=== PATIENT | male | born 2005 | race Caucasian/White ===

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

== ENCOUNTER 2023-01-11 19:55 | Emergency (ER) | payer MEDICAID, SELFPAY ==
[2023-01-11 20:24] VITALS: BP 126/74; PULSE 109; RESP 14; TEMP 36.7; O2SAT 97; BMI 32.5
--- NOTE | 2023-01-11 20:32 | W.ED.ABDPA2 ---
HPI - Abdominal Pain General: Chief Complaint: Abdominal Pain Stated Complaint: abd pain Time Seen by Provider: 01/11/23 20:28 History of Present Illness: 17-year-old male patient comes in with abdominal discomfort with 2 episodes of emesis. Patient appears nontoxic. Patient reports has been unable to eat or drink anything all day. Vital signs are unremarkable. 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 Associated Symptoms: Reports nausea and vomiting Review of Systems GI: Reports: abdominal pain, nausea and vomiting PFSH ED PFSH: Medical History Left renal atrophy Surgical History History of placement of ear tubes Family History Mother Healthy adult Father Diabetes Social History Smoking and tobacco status: current every day smoker Alcohol intake: never Lives independently: No Household members: friend(s) Marital status: Life Partner Current occupational status: employed Physical Exam Const: COMMON NORMALS: alert HENMT: COMMON NORMALS: normocephalic HEAD & SCALP: normocephalic Neck/C-Spine: COMMON NORMALS: full ROM Cardio: COMMON NORMALS: regular rate RATE: regular rate GI: COMMON NORMALS: Soft to palpation AUSCULTATION: Yes normoactive bowel sounds PALPATION: Yes Soft to palpation and Yes Tenderness to palpation present (GI) (Midepigastric) Extremity: COMMON NORMALS: normal to inspection Neuro: SENSORIUM/ORIENTATION: Yes alert Skin: COMMON NORMALS: turgor normal GENERAL SKIN EXAM: turgor normal Course Vital Signs: Vital signs: Vital Signs Temperature 98.0 F 01/11/23 20:24 Pulse Rate 107 H 01/11/23 20:51 Respiratory Rate 26 H 01/11/23 20:51 Blood Pressure 127/86 01/11/23 20:51 Pulse Oximetry 97 01/11/23 20:51 Oxygen Delivery Me thod Room Air 01/11/23 20:24 MDM - Abdominal Pain Medical Decision Making 17-year-old male patient comes in today for complaints of abdominal pain with nausea and vomiting. On exam patient appears nontoxic. Abdomen soft nontender. Bowel sounds are present. Skin is warm and dry. Vital signs are normal except for some mild elevation in pulse at 109. Differential diagnosis includes but not limited to gastroenteritis, gastritis, gallbladder disease, pancreatitis, constipation, renal calculi. Laboratory values were unremarkable. Urinalysis was clean. CT of the abdomen pelvis was unchanged from prior exam. Reviewed exam with patient with recommendations for treatment and follow-up. Patient reported understanding agreed to plan. Lab Data 01/11/23 20:35 01/11/23 20:35 Labs/Radiology: Radiology Impressions Abdomen/Pelvis CT 01/11/23 20:38 IMPRESSION: 1. Findings suggesting mesenteric adenitis as described in the report. 2. Stable moderate atrophy of the left kidney. 3. 2 stones at the left ureterovesicular junction are stable, the larger measures 7.6 mm. Laboratory Results WBC 10.0 10^3/uL (4.5-13.0) 01/11/23 20:35 RBC 5.54 10^6/uL (4.1-5.3) H 01/11/23 20:35 Hgb 15.4 g/dL (11.7-16.6) 01/11/23 20:35 Hct 47.4 % (42.0-52.0) 01/11/23 20:35 MCV 85.6 fl (80-94) 01/11/23 20:35 MCH 27.8 pg (28.0-34.0) L 01/11/23 20:35 MCHC 32.5 g/dL (30.0-36.0) 01/11/23 20:35 RDW 13.5 % (12.1-15.1) 01/11/23 20:35 Plt Count 333 10^3/cmm (130-400) 01/11/23 20:35 MPV 9.6 fL (7.4-10.4) 01/11/23 20:35 Neut % (Auto) 74.9 % 01/11/23 20:35 Lymph % (Auto) 15.4 % 01/11/23 20:35 [place] % (Auto) 7.9 % 01/11/23 20:35 Eos % (Auto) 0.6 % 01/11/23 20:35 Baso % (Auto) 0.4 % 01/11/23 20:35 Neut # (Auto) 7.47 10^3/uL (1.8-8.0) 01/11/23 20:35 Lymph # (Auto) 1.5 10^3/uL (1.5-6.5) 01/11/23 20:35 [place] # (Auto) 0.8 10^3/uL (0.2-0.9) 01/11/23 20:35 Eos # (Auto) 0.1 10^3/uL (0.0-0.8) 01/11/23 20:35 Baso # (Auto) 0.0 10^3/uL (0.0-0.1) 01/11/23 20:35 Nucleated RBC % (auto) 0 % 01/11/23 20:35 Nucleated RBCs # 0.0 /100WBC 01/11/23 20:35 Sodium 138 mmol/L (136-145) 01/11/23 20:35 Potassium 3.8 mmol/L (3.5-5.1) 01/11/23 20:35 Chloride 103 mmol/L (98-107) 01/11/23 20:35 Carbon Dioxide 26 mmol/L (22-29) 01/11/23 20:35 Anion Gap 12.8 (5-19) 01/11/23 20:35 BUN 8 mg/dL (6-20) 01/11/23 20:35 Creatinine 0.9 mg/dL (0.7-1.2) 01/11/23 20:35 GFR Calculation 108.7 mL/min (90-130) 01/11/23 20:35 Glucose 129 mg/dL (65-115) H 01/11/23 20:35 Calculated Osmolality 286 mOsm/kg (285-295) 01/11/23 20:35 Calcium 9.3 mg/dL (8.5-10.5) 01/11/23 20:35 Total Bilirubin 0.2 mg/dL (0.15-1.2) 01/11/23 20:35 AST 21 U/L (0-40) 01/11/23 20:35 ALT 26 U/L (0-41) 01/11/23 20:35 Alkaline Phosphatase 135 U/L (40-130) H 01/11/23 20:35 Total Protein 7.5 g/dL (6.6-8.7) 01/11/23 20:35 Albumin 4.3 g/dL (3.5-5.2) 01/11/23 20:35 Globulin 3.2 g/dL (1.3-4.6) 01/11/23 20:35 Lipase 31 U/L (13-60) 01/11/23 20:35 Urine Color Light yellow (Yellow) 01/11/23 21:41 Urine Appearance Clear (CLEAR) 01/11/23 21:41 Urine pH 7 (5-7) 01/11/23 21:41 Ur Specific [place] 1.000 (1.005-1.030) L 01/11/23 21:41 Urine Protein Trace (Negative) 01/11/23 21:41 Urine Glucose (UA) Norm (Normal) 01/11/23 21:41 Urine Ketones Negative (Negative) 01/11/23 21:41 Urine Blood Neg (Negative) 01/11/23 21:41 Urine Nitrate Negative (Negative) 01/11/23 21:41 Urine Bilirubin Neg (Negative) 01/11/23 21:41 Urine Urobilinogen Neg mg/dL (Negative) 01/11/23 21:41 Ur Leukocyte Esterase Trace (Negative) H 01/11/23 21:41 Urine RBC None /hpf (0-2) 01/11/23 21:41 Urine WBC 0-4 /hpf (0-5) H 01/11/23 21:41 Ur Squamous Epith Cells None /hpf (0-5) 01/11/23 21:41 Amorphous Sediment Not Reportable 01/11/23 21:41 Urine Bacteria None /hpf (NONE) 01/11/23 21:41 Discharge Plan Discharge Patient Disposition: Home Clinical Impression: Gastritis Qualifiers: Gastritis type: unspecified gastritis Chronicity: acute Gastritis bleeding: presence of bleeding unspecified Qualified Code(s): K29.00 - Acute gastritis without bleeding Condition: Stable Prescriptions: New famotidine 20 mg tablet 20 mg PO BID Qty: 60 0RF Continued ondansetron 4 mg tablet,disintegrating 4 mg PO Q8H PRN (Reason: nausea and vomiting) Qty: 7 0RF No Action hydrocodone-acetaminophen 5-325 mg tablet 1 tab PO Q8H PRN (Reason: pain (scale score 7-10)) Qty: 7 0RF Medrol (Flavio) 4 mg tablets,dose pack See Rx Instructions .ROUTE .COMPLEX Qty: 21 0RF Rx Instructions: orally per package directions Benadryl 25 mg capsule 25 mg PO TID Qty: 10 0RF Discharge Orders: Discharge ED (Routine); Ordered 01/11/23 Ordered By: Ziggy Cerda Referrals: Honey Appiah FNP [Primary Care Provider] - Discharge Diet: Usual diet Discharge Activity: Increase activity as tolerated Patient Instructions: Gastroenteritis (ED) Activity Restrictions/Additional Instructions: Clear liquid diet until abdominal pain resolves. Use ondansetron as needed for nausea and vomiting. Use famotidine 1 tablet twice a day for the next 2 weeks to help with the irritation of the stomach lining. Do not use nicotine, drink alcohol, or consume carbonated beverages as this may aggravate your stomach. Follow-up with primary care for further instructions. Return to ED for new concerns. Stand Alone Forms: Work/School Release Coding Level of Care Code ED Elevator Examiner And Adjuster for Naren Cooper
--- NOTE | 2023-01-11 20:38 | CTR_ITS ---
PROCEDURE INFORMATION: Exam: CT Abdomen And Pelvis With Contrast Exam date and time: 01/11/2023 9:04 PM Age: 17 years old Clinical indication: Abdominal pain; Acute; Patient HX: R abd pain, n/v; Additional info: Right abd pain, n/v with blood TECHNIQUE: Imaging protocol: Computed tomography of the abdomen and pelvis with contrast. Sagittal and coronal reformatted images were created and reviewed. Radiation optimization: All CT scans at this facility use at least one of these dose optimization techniques: automated exposure control; mA and/or kV adjustment per patient size (includes targeted exams where dose is matched to clinical indication); or iterative reconstruction. Contrast material: OMNI 350; Contrast volume: 100 ml; Contrast route: INTRAVENOUS (IV); REPORTING DATA: Count of CT and Cardiac NM exams in prior 12 months: This patient has received [address] and 0 known cardiac nuclear medicine studies in the 12 months prior to the current study. COMPARISON: CT kidney stone [id number] 10/07/2022 6:16 PM RADIATION DOSE METRICS: Total DLP (mGy-cm): 1075.23 FINDINGS: Lungs: Visualized lungs are clear. Pleural spaces: No pleural effusion. Heart: Visualized portions of the heart are unremarkable. Liver: The liver is unremarkable. Gallbladder and bile ducts: The gallbladder is unremarkable. No biliary ductal dilatation. Pancreas: The pancreas is unremarkable. No pancreatic ductal dilatation. Spleen: The spleen is unremarkable. Adrenal glands: The right and left adrenal glands are unremarkable. Kidneys and ureters: The right kidney is unremarkable. Stable moderate atrophy of the left kidney. 2 stones at the left ureterovesicular junction are stable, the larger measures 7.6 mm. Stomach and bowel: No obstruction. No mucosal thickening. Appendix: The appendix is visualized and is unremarkable. No findings to suggest acute appendicitis. Intraperitoneal space: No free intraperitoneal air. No ascites. No loculated fluid collections to suggest an abscess. Vasculature: No evidence for aortic aneurysm or aortic dissection. Hepatic veins, portal veins, splenic vein, and SMV are patent. Lymph nodes: Multiple small, nonspecific lymph nodes in the mesenteric fat of the right lower quadrant. No pathologically enlarged lymph nodes. Otherwise, no evidence of bowel inflammation, inflammatory stranding, fluid collections or abscess formation. Findings are suggestive of mesenteric adenitis, which can be secondary to a variety of bacterial, viral, or other inflammatory processes. Urinary bladder: Unremarkable as visualized. Reproductive: Unremarkable as visualized. Bones/joints: No acute fracture. Soft tissues: No acute abnormality in the extra-abdominal soft tissues. CT/CT abdomen pelvis w con* [id number] IMPRESSION: 1. Findings suggesting mesenteric adenitis as described in the report. 2. Stable moderate atrophy of the left kidney. 3. 2 stones at the left ureterovesicular junction are stable, the larger measures 7.6 mm.
[2023-01-11 20:47] VITALS: RESP 16
[2023-01-11] MEDS: ketorolac 30 mg/mL INJ 15 MG IVP (20:47)
[2023-01-11] MEDS: ondansetron 2 mg/ML SDV 2 mL 4 MG IVP (20:47)
[2023-01-11] MEDS: fentaNYL 50 mcg/mL INJ 2mL 100 MCG IVP (20:47)
[2023-01-11] MEDS: sodium chloride 0.9% 1,000 ML 999 ML IV (20:48)
[2023-01-11 20:51] VITALS: BP 127/86; PULSE 107; RESP 26; O2SAT 97
[2023-01-11 21:00] LABS: Alanine Aminotransferase 26 U/L (0-41); Albumin Level 4.3 g/dL (3.5-5.2); Alkaline Phosphatase 135 U/L (40-130); Anion Gap 12.8 (5-19); Aspartate Amino Transferase 21 U/L (0-40); Blood Urea Nitrogen 8 mg/dL (6-20); Calcium 9.3 mg/dL (8.5-10.5); Carbon Dioxide 26 mmol/L (22-29); Chloride 103 mmol/L (98-107); Globulin 3.2 g/dL (1.3-4.6); Glomerular Filtration Rate 108.7 mL/min (90-130); Glucose 129 mg/dL (65-115); Lipase 31 U/L (13-60); Osmolality Calculated 286 mOsm/kg (285-295); Potassium 3.8 mmol/L (3.5-5.1); Sodium 138 mmol/L (136-145); Total Bilirubin 0.2 mg/dL (0.15-1.2); Total Protein 7.5 g/dL (6.6-8.7)
[2023-01-11] MEDS: iohexol 350 mg/mL 500 mL Btl (per mL) IV (21:07)
[2023-01-11 21:08] LABS: Basophils % 0.4 %; Eosinophils # 0.1 10^3/uL (0.0-0.8); Eosinophils % 0.6 %; Hematocrit 47.4 % (42.0-52.0); Hemoglobin 15.4 g/dL (11.7-16.6); Lymphocytes # 1.5 10^3/uL (1.5-6.5); Lymphocytes % 15.4 %; Mean Corpuscular HGB Conc 32.5 g/dL (30.0-36.0); Mean Corpuscular Hemoglobin 27.8 pg (28.0-34.0); Mean Corpuscular Volume 85.6 fl (80-94); Mean Platelet Volume 9.6 fL (7.4-10.4); Monocytes # 0.8 10^3/uL (0.2-0.9); Monocytes % 7.9 %; Neutrophils # 7.47 10^3/uL (1.8-8.0); Neutrophils % 74.9 %; Nucleated Red Blood Cells % 0 %; Platelet Count 333 10^3/cmm (130-400); Red Blood Count 5.54 10^6/uL (4.1-5.3); Red Cell Distribution Width 13.5 % (12.1-15.1)
[2023-01-11 21:56] LABS: Add Urine Microscopic? YES; Bilirubin Urine Neg (Negative); Blood Urine Neg (Negative); Glucose Urine UA Norm (Normal); Ketones Urine Negative (Negative); Leukocyte Esterase Urine Trace (Negative); Nitrate Urine Negative (Negative); Protein Urine Trace (Negative); Urine Appearance Clear (CLEAR); Urine Color Light yellow (Yellow); Urobilinogen Urine Neg (Negative); pH Urine 7 (5-7)
[2023-01-11 21:57] LABS: Add Urine Culture? No; WBC Urine 0-4 /hpf (0-5)
[2023-01-11 22:11] VITALS: BP 121/69; PULSE 95; RESP 23; O2SAT 97
== END 2023-01-11 22:12 | disposition home or self-care (01) ==
PROVIDERS: Emergency Medicine; Emergency Provider Nurse Practitioner Family; PCP Registered Nurse
DX: K29.00 Acute gastritis without bleeding (principal); F17.210 Nicotine dependence, cigarettes, uncomplicated
CPT/HCPCS: 36415; 74177; 80053; 81001; 83690; 85025; 96374; 96375; 99285; J1885; J2405; J3010; J7030; Q9967

== ENCOUNTER 2023-04-01 22:10 | Emergency (ER) | payer MEDICAID, SELFPAY ==
[2023-04-01 22:18] VITALS: BP 147/91; PULSE 82; RESP 20; TEMP 36.7; O2SAT 98; BMI 35.2
--- NOTE | 2023-04-01 22:24 | CTR_ITS ---
PROCEDURE INFORMATION: Exam: CT Abdomen And Pelvis With Contrast Exam date and time: 04/01/2023 11:21 PM Age: 17 years old Clinical indication: Abdominal pain; Localized; Prior surgery; Surgery date: 6+ months; Surgery type: PT thinks he had surgery to his RT kidney in the past but doesnt know what kind; Patient HX: Lower abd pain that radiates to the rlq TECHNIQUE: Imaging protocol: Computed tomography of the abdomen and pelvis with contrast. Radiation optimization: All CT scans at this facility use at least one of these dose optimization techniques: automated exposure control; mA and/or kV adjustment per patient size (includes targeted exams where dose is matched to clinical indication); or iterative reconstruction. Contrast material: OMNI 350; Contrast volume: 100 ml; Contrast route: INTRAVENOUS (IV); REPORTING DATA: Count of CT and Cardiac NM exams in prior 12 months: This patient has received 2 known CTs and 0 known cardiac nuclear medicine studies in the 12 months prior to the current study. COMPARISON: CT abdomen pelvis w con* [id number] 01/11/2023 9:04 PM RADIATION DOSE METRICS: Total DLP (mGy-cm): 1088.63 FINDINGS: Liver: Hepatic steatosis. Gallbladder and bile ducts: Normal. No calcified stones. No ductal dilation. Pancreas: Normal. No ductal dilation. Spleen: Normal. No splenomegaly. Adrenal glands: Normal. No mass. Kidneys and ureters: Left kidney chronic atrophy. Two apparent calculi again seen at the left ureterovesical junction, measuring 7.6 mm, negative for hydronephrosis or hydroureter. Stomach and bowel: Prominent fluid in the small bowel without dilation may reflect an enteritis. Appendix: No evidence of appendicitis. Intraperitoneal space: Unremarkable. No free air. No significant fluid collection. Vasculature: Unremarkable. No abdominal aortic aneurysm. Lymph nodes: Scattered prominent subcentimeter short axis largely right abdominal mesenteric lymph nodes, similar to prior exam, nonspecific. Urinary bladder: Unremarkable as visualized. Reproductive: Unremarkable as visualized. Bones/joints: Unremarkable. No acute fracture. Soft tissues: Unremarkable. CT/CT abdomen pelvis w con* [id number] IMPRESSION: 1. Prominent fluid in the small bowel without dilation may reflect an enteritis. 2. Scattered prominent subcentimeter short axis largely right abdominal mesenteric lymph nodes, similar to prior exam, nonspecific. 3. Hepatic steatosis. 4. Left kidney chronic atrophy. 5. Two apparent calculi again seen at the left ureterovesical junction, measuring 7.6 mm, negative for hydronephrosis or hydroureter.
--- NOTE | 2023-04-01 22:24 | W.ED.ABDPA2 ---
HPI - Abdominal Pain General: Chief Complaint: Abdominal Pain Stated Complaint: lower abd pain Time Seen by Provider: 04/01/23 22:12 Source: patient Mode of arrival: ambulatory Limitations: no limitations History of Present Illness: 17-year-old male states he been having abdominal pains been going on for roughly a month but got much worse for the last 2 days he states its around his bellybutton and right lower side states pain is worse with movement and lifting rates pain a 5 out of 10 currently denies any vomiting denies any fevers. Associated Symptoms: Reports nausea; Denies chills, diarrhea, dysuria, fever(s) and vomiting Review of Systems Const: Denies: fever(s), chills or body aches Eyes: Denies: blurry vision or eye discomfort ENMT: Denies: throat pain or dental pain Card: Denies: chest pain Resp: Denies: dyspnea GI: Reports: abdominal pain and nausea; Denies: vomiting or diarrhea : Denies: dysuria Musc: Denies: neck pain or back pain Skin/Breast: Denies: rash Neuro: Denies: headache(s) PFSH ED PFSH: Medical History Left renal atrophy Surgical History History of placement of ear tubes Family History Mother Healthy adult Father Diabetes Social History Smoking and tobacco/nicotine status: current every day tobacco/nicotine user Alcohol intake: never Lives independently: No Household members: friend(s) Marital status: Life Partner Current occupational status: employed Physical Exam Const: COMMON NORMALS: no acute distress, patient oriented x3 and healthy appearing HENMT: COMMON NORMALS: normocephalic and atraumatic HEAD & SCALP: normocephalic and atraumatic Eye: COMMON NORMALS: conjunctivae normal CONJUNCTIVA: Yes conjunctivae normal Neck/C-Spine: COMMON NORMALS: full ROM and supple Chest: COMMONS NORMALS: normal inspection of the chest Resp: COMMON NORMALS: normal respiratory effort, No retractions, No use of accessory muscles and clear to auscultation bilaterally AUSCULTATION: clear to auscultation bilaterally Cardio: COMMON NORMALS: regular rate, regular rhythm and No murmurs present (Cardio) RATE: regular rate RHYTHM: regular rhythm GI: COMMON NORMALS: Normal to inspection, nondistended, normoactive bowel sounds present, Soft to palpation, non-tender and no masses PALPATION: Yes Soft to palpation Extremity: COMMON NORMALS: normal to inspection and full ROM Neuro: COMMON NORMALS: patient oriented x3, moves all extremities and no focal motor deficits Psych: COMMON NORMALS: mental status grossly normal, Normal thought process present and cooperative THOUGHT PROCESS: Normal thought process present Skin: COMMON NORMALS: no rashes or lesions noted and no wounds GENERAL SKIN EXAM: no rashes or lesions noted Course Vital Signs: Vital signs: Vital Signs Temperature 98.1 F 04/01/23 22:18 Pulse Rate 76 04/01/23 23:53 Respiratory Rate 18 04/01/23 22:40 Blood Pressure 111/75 04/01/23 23:53 Pulse Oximetry 95 04/01/23 23:53 Oxygen Delivery Me thod Room Air 04/01/23 23:53 MDM - Abdominal Pain Medical Decision Making Patient presents here with abdominal pain CT shows an enteritis his pain is improved blood work is normal patient is stable for discharge he is to follow-up with PCP and return for understanding will place him on Protonix. Medical Records I reviewed the patient's medical records. Lab Data I reviewed the patient's lab results. 04/01/23 22:21 04/01/23 22:21 Labs/Radiology: Radiology Impressions Abdomen/Pelvis CT 04/01/23 22:24 IMPRESSION: 1. Prominent fluid in the small bowel without dilation may reflect an enteritis. 2. Scattered prominent subcentimeter short axis largely right abdominal mesenteric lymph nodes, similar to prior exam, nonspecific. 3. Hepatic steatosis. 4. Left kidney chronic atrophy. 5. Two apparent calculi again seen at the left ureterovesical junction, measuring 7.6 mm, negative for hydronephrosis or hydroureter. Laboratory Results WBC 9.99 10^3/uL (4.5-13.0) 04/01/23 22:21 RBC 5.51 10^6/uL (3.85-5.65) 04/01/23 22:21 Hgb 15.20 g/dL (13.2-15.6) 04/01/23 22:21 Hct 46.5 % (37-53) 04/01/23 22:21 MCV 84.4 fl (82-101) 04/01/23 22:21 MCH 27.6 pg (27-33) 04/01/23 22:21 MCHC 32.7 g/dL (30-55) 04/01/23 22:21 RDW 13.4 % (12.1-15.1) 04/01/23 22:21 Plt Count 338 10^3/cmm (157-399) 04/01/23 22:21 MPV 9.3 fL (7.4-10.4) 04/01/23 22:21 Neut % (Auto) 66.6 % 04/01/23 22:21 Lymph % (Auto) 25.9 % 04/01/23 22:21 [place] % (Auto) 6.3 % 04/01/23 22:21 Eos % (Auto) 0.4 % 04/01/23 22:21 Baso % (Auto) 0.2 % 04/01/23 22:21 Neut # (Auto) 6.65 10^3/uL (1.8-8.0) 04/01/23 22:21 Lymph # (Auto) 2.6 10^3/uL (1.5-6.5) 04/01/23 22:21 [place] # (Auto) 0.6 10^3/uL (0.2-0.9) 04/01/23 22:21 Eos # (Auto) 0.0 10^3/uL (0.0-0.8) 04/01/23 22:21 Baso # (Auto) 0.0 10^3/uL (0.0-0.1) 04/01/23 22:21 Nucleated RBC % (auto) 0 % 04/01/23 22:21 Nucleated RBCs # 0.0 /100WBC 04/01/23 22:21 Sodium 139 mmol/L (136-145) 04/01/23 22:21 Potassium 4.2 mmol/L (3.5-5.1) 04/01/23 22:21 Chloride 103 mmol/L (98-107) 04/01/23 22:21 Carbon Dioxide 24 mmol/L (22-29) 04/01/23 22:21 Anion Gap 16.2 (5-19) 04/01/23 22:21 BUN 13 mg/dL (6-20) 04/01/23 22:21 Creatinine 1.0 mg/dL (0.7-1.2) 04/01/23 22:21 GFR Calculation 96.3 mL/min (90-130) 04/01/23 22:21 Glucose 113 mg/dL (65-115) 04/01/23 22:21 Calculated Osmolality 289 mOsm/kg (285-295) 04/01/23 22:21 Calcium 9.7 mg/dL (8.5-10.5) 04/01/23 22:21 Total Bilirubin 0.2 mg/dL (0.15-1.2) 04/01/23 22:21 AST 23 U/L (0-40) 04/01/23 22:21 ALT 32 U/L (0-41) 04/01/23 22:21 Alkaline Phosphatase 121 U/L (40-130) 04/01/23 22:21 Total Protein 8.0 g/dL (6.6-8.7) 04/01/23 22:21 Albumin 4.9 g/dL (3.5-5.2) 04/01/23 22:21 Globulin 3.1 g/dL (1.3-4.6) 04/01/23 22:21 Lipase 31 U/L (13-60) 04/01/23 22:21 Urine Color Yellow (Yellow) 04/01/23 23:10 Urine Appearance Clear (CLEAR) 04/01/23 23:10 Urine pH 5 (5-7) 04/01/23 23:10 Ur Specific [place] 1.020 (1.005-1.030) 04/01/23 23:10 Urine Protein Neg (Negative) 04/01/23 23:10 Urine Glucose (UA) Norm (Normal) 04/01/23 23:10 Urine Ketones Negative (Negative) 04/01/23 23:10 Urine Blood Neg (Negative) 04/01/23 23:10 Urine Nitrate Negative (Negative) 04/01/23 23:10 Urine Bilirubin Neg (Negative) 04/01/23 23:10 Urine Urobilinogen Norm mg/dL (Negative) 04/01/23 23:10 Ur Leukocyte Esterase Negative (Negative) 04/01/23 23:10 All radiology interpretation(s) finalized by discharge Discharge Plan Discharge Patient Disposition: Home Clinical Impression: Abdominal pain Condition: Stable Prescriptions: New Protonix 40 mg tablet,delayed release (DR/EC) 40 mg PO DAILY Qty: 60 0RF No Action hydrocodone-acetaminophen 5-325 mg tablet 1 tab PO Q8H PRN (Reason: pain (scale score 7-10)) Qty: 7 0RF Medrol (Flavio) 4 mg tablets,dose pack See Rx Instructions .ROUTE .COMPLEX Qty: 21 0RF Rx Instructions: orally per package directions Benadryl 25 mg capsule 25 mg PO TID Qty: 10 0RF famotidine 20 mg tablet 20 mg PO BID Qty: 60 0RF ondansetron 4 mg tablet,disintegrating 4 mg PO Q8H PRN (Reason: nausea and vomiting) Qty: 7 0RF Discharge Orders: Discharge ED (Routine); Ordered 04/02/23 Ordered By: Kaz Farfan Referrals: Honey Appiah FNP [Primary Care Provider] - 1-3 days Discharge Diet: Advance as tolerated Discharge Activity: Resume usual activity Patient Instructions: Abdominal Pain (ED) Coding Level of Care Code ED Professor Of Chemical Engineering for Naren Cooper
[2023-04-01 22:28] LABS: Basophils % 0.2 %; Eosinophils % 0.4 %; Hematocrit 46.5 % (37-53); Lymphocytes # 2.6 10^3/uL (1.5-6.5); Lymphocytes % 25.9 %; Mean Corpuscular HGB Conc 32.7 g/dL (30-55); Mean Corpuscular Hemoglobin 27.6 pg (27-33); Mean Corpuscular Volume 84.4 fl (82-101); Mean Platelet Volume 9.3 fL (7.4-10.4); Monocytes # 0.6 10^3/uL (0.2-0.9); Monocytes % 6.3 %; Neutrophils # 6.65 10^3/uL (1.8-8.0); Neutrophils % 66.6 %; Nucleated Red Blood Cells % 0 %; Platelet Count 338 10^3/cmm (157-399); Red Blood Count 5.51 10^6/uL (3.85-5.65); Red Cell Distribution Width 13.4 % (12.1-15.1); White Blood Count 9.99 10^3/uL (4.5-13.0)
[2023-04-01] MEDS: ondansetron 2 mg/ML SDV 2 mL 4 MG IVP (22:34)
[2023-04-01 22:36] VITALS: RESP 16
[2023-04-01] MEDS: morphine 4 mg/mL SDV 1 mL IVP (22:36)
[2023-04-01 22:40] VITALS: BP 147/91; PULSE 77; RESP 18; O2SAT 97
[2023-04-01 22:57] LABS: Alanine Aminotransferase 32 U/L (0-41); Albumin Level 4.9 g/dL (3.5-5.2); Alkaline Phosphatase 121 U/L (40-130); Anion Gap 16.2 (5-19); Aspartate Amino Transferase 23 U/L (0-40); Blood Urea Nitrogen 13 mg/dL (6-20); Calcium 9.7 mg/dL (8.5-10.5); Carbon Dioxide 24 mmol/L (22-29); Chloride 103 mmol/L (98-107); Globulin 3.1 g/dL (1.3-4.6); Glomerular Filtration Rate 96.3 mL/min (90-130); Glucose 113 mg/dL (65-115); Lipase 31 U/L (13-60); Osmolality Calculated 289 mOsm/kg (285-295); Potassium 4.2 mmol/L (3.5-5.1); Sodium 139 mmol/L (136-145); Total Bilirubin 0.2 mg/dL (0.15-1.2)
[2023-04-01 23:15] LABS: Add Urine Microscopic? NO; Charge for UA Resulting for Rev
[2023-04-01 23:22] LABS: Bilirubin Urine Neg (Negative); Blood Urine Neg (Negative); Glucose Urine UA Norm (Normal); Ketones Urine Negative (Negative); Leukocyte Esterase Urine Negative (Negative); Nitrate Urine Negative (Negative); Protein Urine Neg (Negative); Urine Appearance Clear (CLEAR); Urine Color Yellow (Yellow); Urobilinogen Urine Norm (Negative); pH Urine 5 (5-7)
[2023-04-01] MEDS: iohexol 350 mg/mL 500 mL Btl (per mL) IV (23:25)
[2023-04-01 23:53] VITALS: BP 111/75; PULSE 76; O2SAT 95
--- NOTE | 2023-04-02 00:02 | PC.NURSE ---
Rounding with patient re: pain. Pt states pain is still 10/10. He does not feel that the Morphine helped at all and does not want any strong pain medication. Provider notified and Tylenol po order has been place.
[2023-04-02] MEDS: acetaminophen 500 mg Tablet 1000 MG PO (00:05)
[2023-04-02 00:29] VITALS: BP 133/69; PULSE 80; RESP 18; O2SAT 99
== END 2023-04-02 00:32 | disposition home or self-care (01) ==
PROVIDERS: Emergency Provider Emergency Medicine; PCP Registered Nurse
DX: R10.30 Lower abdominal pain, unspecified (principal); N20.1 Calculus of ureter; F17.210 Nicotine dependence, cigarettes, uncomplicated
CPT/HCPCS: 36415; 74177; 80053; 81003; 83690; 85025; 96374; 96375; 99285; J2270; J2405; Q9967

== ENCOUNTER 2023-06-11 18:01 | Emergency (ER) | payer MEDICAID, SELFPAY ==
[2023-06-11 18:05] VITALS: BP 120/80; PULSE 94; RESP 18; TEMP 36.6; O2SAT 98; BMI 35.8
--- NOTE | 2023-06-11 18:28 | CTR_ITS ---
PROCEDURE INFORMATION: Exam: CT Pelvis With Contrast Exam date and time: 06/11/2023 7:22 PM Age: 17 years old Clinical indication: Patient HX: Possible abscess to gluteal cleft. ; Additional info: Deep abscess TECHNIQUE: Imaging protocol: Computed tomography of the pelvis with contrast. Radiation optimization: All CT scans at this facility use at least one of these dose optimization techniques: automated exposure control; mA and/or kV adjustment per patient size (includes targeted exams where dose is matched to clinical indication); or iterative reconstruction. Contrast material: OMNI 350; Contrast volume: 100 ml; Contrast route: INTRAVENOUS (IV); REPORTING DATA: Count of CT and Cardiac NM exams in prior 12 months: This patient has received 3 known CTs and 0 known cardiac nuclear medicine studies in the 12 months prior to the current study. COMPARISON: CT abdomen pelvis w con* [id number] 04/01/2023 11:21 PM RADIATION DOSE METRICS: Total DLP (mGy-cm): 864.61 FINDINGS: Kidneys and ureters: Calcifications adjacent to the left ureterovesical junction are unchanged from prior. Stomach and bowel: Visualized small bowel and colon are unremarkable. Appendix: No evidence of appendicitis. Intraperitoneal space: Unremarkable. No free air. No significant fluid collection. Lymph nodes: Unremarkable. No enlarged lymph nodes. Urinary bladder: Normal. No mass. Reproductive: Normal as visualized. Bones/joints: Unremarkable. No acute fracture. No dislocation. Soft tissues: In the midline superior aspect of the gluteal cleft, there is focal edema and cutaneous thickening surrounding a 1.4 x 0.9 x 1.0 cm low-attenuation focus which may be a developing abscess. The overall area of inflammation measures 2.3 x 4.3 x 3.4 cm. No radiopaque foreign body or soft tissue gas. No perineal/perianal abscess or inflammation. CT/CT pelvis w con* [id number] IMPRESSION: In the midline superior gluteal cleft there is focal inflammation with a small central low attenuation collection worrisome for an abscess. No foreign body or soft tissue gas. No inflammation in the perianal tissues.
--- NOTE | 2023-06-11 18:28 | W.ED.GENADLT ---
HPI - General Adult General: Chief complaint: General Medical Stated complaint: Hyper Vent\Cyst On Bottom Time Seen by Provider: 06/11/23 18:07 History of Present Illness: 17-year-old male presented emergency room with pain along the gluteal cleft for the past 2 weeks. Patient reveals increased pain today and was seen at a different hospital few hours ago. X-ray was done and patient was told he had a cyst but no medication was given. Patient reveals increased pain upon getting home and described pain as sharp sensation with severity of 8 out of 10. Increased pain with ambulation but denies any bowel or bladder dysfunction. No fever, chills, dysuria, hematuria or urine frequency. Girlfriend noticed some redness but denies any drainage from the area. Associated symptoms: Deny confusion, malaise, nausea or vomiting Review of Systems General: Reports: 10 or more systems reviewed and unremarkable except in HPI and below Const: Denies: fever(s), chills, body aches, change in appetite, change in weight, fatigue, malaise or night sweats GI: Denies: abdominal pain, nausea, vomiting, hematemesis, coffee ground emesis or dysphagia : Denies: flank pain, difficulty urinating, dysuria, urinary frequency, urinary urgency, urinary hesitancy, urinary dribbling, difficulty starting urination, change in urine stream, nocturia, oliguria, testicular pain, testicular mass, difficulty with ejactulations or painful ejaculations Skin/Breast: Reports: erythema, skin tenderness and skin swelling Neuro: Denies: numbness in extremities, weakness in extremities, sensory changes, lack of coordination, difficulty walking, frequent falls, dizziness, vertigo or confusion [facility] ED PFSH: Medical History Left renal atrophy Surgical History History of placement of ear tubes Family History Mother Healthy adult Father Diabetes Social History Smoking and tobacco/nicotine status: current every day tobacco/nicotine user Alcohol intake: never Lives independently: No Household members: friend(s) Marital status: Life Partner Current occupational status: employed Physical Exam Const: COMMON NORMALS: no acute distress, average body habitus, patient oriented x3, no limitations, healthy appearing, alert and well nourished Chest: COMMONS NORMALS: normal inspection of the chest, normal palpation of entire chest wall, normal inspection of the breasts and normal palpation of the breasts Breast/axilla inspection: Yes normal inspection of the breasts BREAST/AXILLA PALPATION: Yes normal palpation of the breasts Resp: COMMON NORMALS: normal respiratory effort, No retractions, No use of accessory muscles, clear to auscultation bilaterally and percussion normal AUSCULTATION: clear to auscultation bilaterally PERCUSSION: percussion normal Back/Pelvis: SACRUM: erythema, swelling and tenderness Neuro: COMMON NORMALS: patient oriented x3 SENSORIUM/ORIENTATION: Yes alert Procedures Abscess I/D Site: other (Gluteal cleft) Local Anesthetic: lidocaine 2% Amount of anesthesia used (mL): 5 Technique: incised with #11 blade Amount of fluid expressed (mL): 2 Irrigation: No Packing used?: plain Complications: pain and bleeding Course Vital Signs: Vital signs: Vital Signs Temperature 97.9 F 06/11/23 18:05 Pulse Rate 90 06/11/23 20:38 Respiratory Rate 16 06/11/23 20:38 Blood Pressure 126/72 06/11/23 20:38 Pulse Oximetry 98 06/11/23 20:38 Oxygen Delivery Me thod Room Air 06/11/23 18:05 MDM - General Adult Medical Decision Making Patient made comfortable emergency room and had extensive workup with CBC, CMP, CT scan. Incision and drainage was performed and it was packed with iodoform. Patient was given IV antibiotics in the ER. Patient be discharged home with oral antibiotics and close follow-up PCP recommend for wound recheck. Differential Diagnosis Abscess, folliculitis, cellulitis, perirectal abscess pilonidal abscess Lab Data 06/11/23 19:11 06/11/23 19:[address] 06/11/23 18:28 IMPRESSION: In the midline superior gluteal cleft there is focal inflammation with a small central low attenuation collection worrisome for an abscess. No foreign body or soft tissue gas. No inflammation in the perianal tissues. Laboratory Results WBC 11.92 10^3/uL (4.5-13.0) 06/11/23 19:11 RBC 5.41 10^6/uL (3.85-5.65) 06/11/23 19:11 Hgb 14.90 g/dL (13.2-15.6) 06/11/23 19:11 Hct 45.6 % (37-53) 06/11/23 19:11 MCV 84.3 fl (82-101) 06/11/23 19:11 MCH 27.5 pg (27-33) 06/11/23 19:11 MCHC 32.7 g/dL (30-55) 06/11/23 19:11 RDW 13.5 % (12.1-15.1) 06/11/23 19:11 Plt Count 315 10^3/cmm (157-399) 06/11/23 19:11 MPV 9.5 fL (7.4-10.4) 06/11/23 19:11 Neut % (Auto) 79.0 % 06/11/23 19:11 Lymph % (Auto) 15.5 % 06/11/23 19:11 [place] % (Auto) 4.4 % 06/11/23 19:11 Eos % (Auto) 0.3 % 06/11/23 19:11 Baso % (Auto) 0.2 % 06/11/23 19:11 Neut # (Auto) 9.41 10^3/uL (1.8-8.0) H 06/11/23 19:11 Lymph # (Auto) 1.9 10^3/uL (1.5-6.5) 06/11/23 19:11 [place] # (Auto) 0.5 10^3/uL (0.2-0.9) 06/11/23 19:11 Eos # (Auto) 0.0 10^3/uL (0.0-0.8) 06/11/23 19:11 Baso # (Auto) 0.0 10^3/uL (0.0-0.1) 06/11/23 19:11 Nucleated RBC % (auto) 0 % 06/11/23 19:11 Nucleated RBCs # 0.0 /100WBC 06/11/23 19:11 Sodium 138 mmol/L (136-145) 06/11/23 19:11 Potassium 3.6 mmol/L (3.5-5.1) 06/11/23 19:11 Chloride 102 mmol/L (98-107) 06/11/23 19:11 Carbon Dioxide 24 mmol/L (22-29) 06/11/23 19:11 Anion Gap 15.6 (5-19) 06/11/23 19:11 BUN 12 mg/dL (6-20) 06/11/23 19:11 Creatinine 1.0 mg/dL (0.7-1.2) 06/11/23 19:11 GFR Calculation 96.3 mL/min (90-130) 06/11/23 19:11 Glucose 145 mg/dL (65-115) H 06/11/23 19:11 Calculated Osmolality 288 mOsm/kg (285-295) 06/11/23 19:11 Calcium 9.5 mg/dL (8.5-10.5) 06/11/23 19:11 Total Bilirubin 0.2 mg/dL (0.15-1.2) 06/11/23 19:11 AST 25 U/L (0-40) 06/11/23 19:11 ALT 33 U/L (0-41) 06/11/23 19:11 Alkaline Phosphatase 120 U/L (40-130) 06/11/23 19:11 Total Protein 7.9 g/dL (6.6-8.7) 06/11/23 19:11 Albumin 4.6 g/dL (3.5-5.2) 06/11/23 19:11 Globulin 3.3 g/dL (1.3-4.6) 06/11/23 19:11 All radiology interpretation(s) finalized by discharge Discharge Plan Discharge Patient Disposition: Home Clinical Impression: Abscess Condition: Stable Prescriptions: New tramadol 50 mg tablet 50 mg PO BID PRN (Reason: pain) Qty: 7 0RF clindamycin HCl 300 mg capsule 300 mg PO TID 10 Days Qty: 30 0RF No Action hydrocodone-acetaminophen 5-325 mg tablet 1 tab PO Q8H PRN (Reason: pain (scale score 7-10)) Qty: 7 0RF Protonix 40 mg tablet,delayed release (DR/EC) 40 mg PO DAILY Qty: 60 0RF Medrol (Flavio) 4 mg tablets,dose pack See Rx Instructions .ROUTE .COMPLEX Qty: 21 0RF Rx Instructions: orally per package directions Benadryl 25 mg capsule 25 mg PO TID Qty: 10 0RF famotidine 20 mg tablet 20 mg PO BID Qty: 60 0RF ondansetron 4 mg tablet,disintegrating 4 mg PO Q8H PRN (Reason: nausea and vomiting) Qty: 7 0RF Discharge Orders: Discharge ED (Routine); Ordered 06/11/23 Ordered By: Sj Cuellar Referrals: Honey Appiah FNP [Primary Care Provider] - Discharge Diet: Advance as tolerated Discharge Activity: Resume usual activity Patient Instructions: Opioid Safety, Pain Management Activity Restrictions/Additional Instructions: Wound recheck in 2 to 3 days. Patient was told to return to emergency room if increased swelling, pain and drainage fever. Please take all antibiotics as prescribed. Coding Level of Care Code ED Head Banquet Waitress for Naren Cooper
[2023-06-11 19:13] VITALS: RESP 18
[2023-06-11] MEDS: ondansetron 2 mg/ML SDV 2 mL 4 MG IVP (19:13)
[2023-06-11] MEDS: morphine 4 mg/mL SDV 1 mL IVP (19:13)
[2023-06-11 19:16] LABS: Basophils % 0.2 %; Eosinophils % 0.3 %; Hematocrit 45.6 % (37-53); Lymphocytes # 1.9 10^3/uL (1.5-6.5); Lymphocytes % 15.5 %; Mean Corpuscular HGB Conc 32.7 g/dL (30-55); Mean Corpuscular Hemoglobin 27.5 pg (27-33); Mean Corpuscular Volume 84.3 fl (82-101); Mean Platelet Volume 9.5 fL (7.4-10.4); Monocytes # 0.5 10^3/uL (0.2-0.9); Monocytes % 4.4 %; Neutrophils # 9.41 10^3/uL (1.8-8.0); Nucleated Red Blood Cells % 0 %; Platelet Count 315 10^3/cmm (157-399); Red Blood Count 5.41 10^6/uL (3.85-5.65); Red Cell Distribution Width 13.5 % (12.1-15.1); White Blood Count 11.92 10^3/uL (4.5-13.0)
[2023-06-11] MEDS: iohexol 350 mg/mL 500 mL Btl (per mL) IV (19:26)
[2023-06-11 19:34] LABS: Alanine Aminotransferase 33 U/L (0-41); Albumin Level 4.6 g/dL (3.5-5.2); Alkaline Phosphatase 120 U/L (40-130); Anion Gap 15.6 (5-19); Aspartate Amino Transferase 25 U/L (0-40); Blood Urea Nitrogen 12 mg/dL (6-20); Calcium 9.5 mg/dL (8.5-10.5); Carbon Dioxide 24 mmol/L (22-29); Chloride 102 mmol/L (98-107); Globulin 3.3 g/dL (1.3-4.6); Glomerular Filtration Rate 96.3 mL/min (90-130); Glucose 145 mg/dL (65-115); Osmolality Calculated 288 mOsm/kg (285-295); Potassium 3.6 mmol/L (3.5-5.1); Sodium 138 mmol/L (136-145); Total Bilirubin 0.2 mg/dL (0.15-1.2); Total Protein 7.9 g/dL (6.6-8.7)
[2023-06-11] MEDS: clindamycin 600 MG/50 ML PREMIX 100 MG IV (19:39)
[2023-06-11 20:38] VITALS: BP 126/72; PULSE 90; RESP 16; O2SAT 98
[2023-06-11] MEDS: lidocaine 2% INJ 20 mL INJECTION (20:39)
[2023-06-11] MEDS: ondansetron 4 MG Tablet PO (21:06)
== END 2023-06-11 21:08 | disposition home or self-care (01) ==
PROVIDERS: Emergency Provider Family Medicine; PCP Registered Nurse
DX: L02.31 Cutaneous abscess of buttock (principal); Z72.0 Tobacco use
CPT/HCPCS: 10060; 72193; 80053; 85025; 96365; 96375; 99285; J2270; J2405; J3490; Q0162; Q9967